=== PATIENT | female | born 1980 | race Caucasian/White ===

== ENCOUNTER 2019-12-13 08:48 | Day surgery (SDC) | payer OTHER ==
[2019-12-11 11:25] LABS: HEMATOCRIT 43.7 % (36.0-47.0); MEAN CORPUSCULAR HEMOGLOBIN 29.6 pg (27.0-33.4); MEAN CORPUSCULAR HGB CONC 34.3 g/dL (32.0-36.0); MEAN CORPUSCULAR VOLUME 86 fl (80-97); PLATELET COUNT 215 10^3/uL (150-450); RED BLOOD COUNT 5.07 10^6/uL (3.72-5.28); RED CELL DISTRIBUTION WIDTH 12.6 % (11.5-14.0); WHITE BLOOD COUNT 7.7 10^3/uL (4.0-10.5)
[2019-12-11 11:40] LABS: APPEARANCE,URINE CLEAR; BILIRUBIN,URINE NEGATIVE (NEGATIVE); COLOR,URINE YELLOW; GLUCOSE, URINE NEGATIVE (NEGATIVE); KETONES,URINE NEGATIVE (NEGATIVE); LEUKOCYTE ESTERASE,URINE NEGATIVE (NEGATIVE); NITRITE,URINE NEGATIVE (NEGATIVE); PROTEIN,URINE NEGATIVE (NEGATIVE); URINE SPECIFIC GRAVITY 1.016; UROBILINOGEN,URINE NEGATIVE mg/dL (<2.0)
[~2019-12-13 08:48] MED LIST: LACTATED RINGERS 1000 ML IV PRN; LIDOCAINE 0.5% INJ-PF (5 MG/ML) 50 ML SDV SUBCUT PRN
[2019-12-13] MEDS ORDERED: SCOPOLAMINE HYDROBROMIDE 1.5 MG PATCH.TD72 ONE (09:57)
[2019-12-13] MEDS ORDERED: ALBUTEROL SULFATE 0.083% NEB 2.5 MG/3 ML AMPUL NEB ONE (10:15)
[2019-12-13] MEDS ORDERED: FENTANYL CITRATE INJ/PF 100 MCG/2 ML AMPUL ONE ×2 (10:38→11:30)
[2019-12-13] MEDS ORDERED: MIDAZOLAM 2 MG/2 ML INJ ONE (10:38)
[2019-12-13] MEDS ORDERED: DEXAMETHASONE SOD PHOSPHATE INJ 4 MG/1 ML VIAL ONE (10:38)
[2019-12-13] MEDS ORDERED: LIDOCAINE 2% INJ-PF (20 MG/ML) 10 ML AMPUL ONE (10:38)
[2019-12-13] MEDS ORDERED: PROPOFOL INJ 200 MG/20 ML VIAL IV ONE (10:39)
[2019-12-13] MEDS ORDERED: ONDANSETRON HCL INJ/PF 4 MG/2 ML SDV ONE (10:39)
[2019-12-13] MEDS ORDERED: KETOROLAC TROMETHAMINE INJ/PF 30 MG/1 ML SDV IV PRN (11:17)
[2019-12-13] MEDS ORDERED: IBUPROFEN 800 MG TABLET PO PRN (11:17)
[2019-12-13] MEDS ORDERED: RINGERS SOLUTION,LACTATED 1,000 ML IV PRN (11:17)
[2019-12-13] MEDS ORDERED: OXYCODONE-ACETAMINOPHEN 5-325 MG TABLET PO PRN ×4 (11:17→11:47)
--- NOTE | 2019-12-13 11:21 | Operative Report ---
Operative Report DATE OF SURGERY: 12/13/19 PREOPERATIVE DIAGNOSIS: Heavy menses POSTOPERATIVE DIAGNOSIS: Same OPERATION: Hysteroscopy D&C NovaSure ablation SURGEON: DENISE BENNETT ANESTHESIA: GA TISSUE REMOVED OR ALTERED: Uterine contents COMPLICATIONS: None ESTIMATED BLOOD LOSS: 20 cc INTRAOPERATIVE FINDINGS: Normal-appearing uterine cavity with a length of 5 cm and a width of 4.3 cm PROCEDURE: Patient was taken the OR and placed in supine position. General anesthesia was induced. She was placed in dorsolithotomy position using Micheal stirrups. Her perineum and vagina were prepared and draped in sterile fashion. She had just voided and did not need catheterization. A weighted speculum was placed in the vagina and the anterior lip cervix was grasped with a tenaculum. Sound was to 8 cm before and after the case. Cervix was dilated endocervical curettings were obtained. Hysteroscopy was performed which showed a empty uterine cavity. Next the D&C was done and into the atrial curettings were sent for pathology. The NovaSure device was placed tested and fired without incident. After the completion of the procedure the NovaSure was removed. Repeat hysteroscopy showed a well ablated uterine cavity. Sound was to 8 cm. All instruments were removed. She is placed back in supine position taken to recovery in stable condition.
--- NOTE | 2019-12-13 11:24 | Discharge Summary ---
Discharge Summary (SDC) - Discharge Final Diagnosis: Heavy menses Date of Surgery: 12/13/19 Discharge Date: 12/13/19 Condition: Good Referrals: JANEEN WHITMAN, [facility]-C [Primary Care Provider] - Discharge Diet: Regular Discharge Activity: Balance Activity w/Rest, Pelvic Rest Report the Following to Your Physician Immediately: Fever over 101 Degrees
[2019-12-13] MEDS ORDERED: KETOROLAC TROMETHAMINE INJ/PF 30 MG/1 ML SDV ONE (11:30)
[2019-12-13] MEDS ORDERED: FENTANYL CITRATE INJ/PF 100 MCG/2 ML AMPUL IV PRN ×3 (11:47)
[2019-12-13] MEDS ORDERED: MORPHINE SULFATE 10 MG/ML INJ IV PRN (11:47)
[2019-12-13] MEDS ORDERED: PROMETHAZINE HCL INJ 25 MG/1 ML VIAL IV PRN ×2 (11:47)
[2019-12-13] MEDS ORDERED: ONDANSETRON HCL INJ/PF 4 MG/2 ML SDV IV PRN (11:47)
[2019-12-13] MEDS ORDERED: MEPERIDINE HCL/PF INJ 25 MG/1 ML DISP.SYRIN IV PRN (11:47)
[2019-12-13] MEDS ORDERED: DIPHENHYDRAMINE HCL 50 MG/ML VIAL IV PRN (11:47)
[2019-12-13] MEDS ORDERED: ACETAMINOPHEN 1,000 MG/100 ML RTUPB IV ONE (12:07)
[2019-12-13] MEDS ORDERED: OXYCODONE-ACETAMINOPHEN 5-325 MG TABLET ONE (12:25)
[2019-12-13 13:56] VITALS: BP 124/86
== END 2019-12-13 13:25 | disposition home or self-care (01) ==
LOC: OROUT 08:48
PROVIDERS: ATTEND Obstetrics & Gynecology
DX: N92.1 Excessive and frequent menstruation with irregular cycle (principal); F17.210 Nicotine dependence, cigarettes, uncomplicated; Z79.899 Other long term (current) drug therapy
CPT/HCPCS: 36415; 85027; 81025; 81001; 88305 ×2; 00952; 58563; J2250; J1100; J3010; J1885; J2405; J2704; J3490; J0131; 952

== ENCOUNTER 2020-10-16 05:33 | Day surgery (SDC) | payer OTHER ==
[2020-10-13 10:41] LABS: HEMATOCRIT 43.6 % (36.0-47.0); MEAN CORPUSCULAR HGB CONC 34.5 g/dL (32.0-36.0); MEAN CORPUSCULAR VOLUME 87 fl (80-97); PLATELET COUNT 227 10^3/uL (150-450); RED CELL DISTRIBUTION WIDTH 13.6 % (11.5-14.0); WHITE BLOOD COUNT 7.6 10^3/uL (4.0-10.5)
[2020-10-13 10:44] LABS: APPEARANCE,URINE CLEAR; BILIRUBIN,URINE NEGATIVE (NEGATIVE); COLOR,URINE YELLOW; GLUCOSE, URINE NEGATIVE (NEGATIVE); KETONES,URINE NEGATIVE (NEGATIVE); LEUKOCYTE ESTERASE,URINE TRACE (NEGATIVE); NITRITE,URINE NEGATIVE (NEGATIVE); PROTEIN,URINE NEGATIVE (NEGATIVE); URINE SPECIFIC GRAVITY 1.016; UROBILINOGEN,URINE NEGATIVE mg/dL (<2.0)
[2020-10-13 11:18] LABS: ALBUMIN 4.4 g/dL (3.5-5.0); ALKALINE PHOSPHATASE 114 U/L (38-126); ANION GAP 6 (5-19); ASPARTATE AMINO TRANSFERASE 44 U/L (14-36); BILIRUBIN,DIRECT 0.1 mg/dL (0.0-0.4); BILIRUBIN,TOTAL 0.4 mg/dL (0.2-1.3); BLOOD UREA NITROGEN 13 mg/dL (7-20); CALCIUM 9.8 mg/dL (8.4-10.2); CARBON DIOXIDE 29 mmol/L (22-30); CHLORIDE 100 mmol/L (98-107); GLUCOSE 105 mg/dL (75-110); POTASSIUM 4.7 mmol/L (3.6-5.0); TOTAL PROTEIN 7.3 g/dL (6.3-8.2)
[~2020-10-16 05:33] MED LIST changes: +CEFAZOLIN 1 GM/D5W RTU 1 GM/50 ML RTUPB IV ONE; +CEFAZOLIN 1 GM/D5W RTU 1 GM/50 ML RTUPB IV PRN; -LIDOCAINE 0.5% INJ-PF (5 MG/ML) 50 ML SDV SUBCUT PRN
[2020-10-16] MEDS ORDERED: EPHEDRINE SULFATE INJ 50 MG/1 ML AMPULE ONE (06:42)
[2020-10-16] MEDS ORDERED: FENTANYL CITRATE INJ/PF 250 MCG/5 ML AMPULE ONE (06:42)
[2020-10-16] MEDS ORDERED: MIDAZOLAM 2 MG/2 ML INJ ONE (06:42)
[2020-10-16] MEDS ORDERED: SUGAMMADEX SODIUM 200 MG/2 ML SDV IV ONE (06:43)
[2020-10-16] MEDS ORDERED: PROPOFOL INJ 200 MG/20 ML VIAL IV ONE (06:43)
[2020-10-16] MEDS ORDERED: HYDROMORPHONE HCL INJ/PF 2 MG/ML AMPULE ONE (06:43)
[2020-10-16] MEDS ORDERED: LIDOCAINE 2% INJ (20 MG/ML) 20 ML MDV ONE (06:45)
[2020-10-16] MEDS ORDERED: OXYCODONE-ACETAMINOPHEN 5-325 MG TABLET PO PRN ×4 (08:24→09:51)
[2020-10-16] MEDS ORDERED: MEPERIDINE HCL/PF INJ 25 MG/1 ML DISP.SYRIN IV PRN (08:24)
[2020-10-16] MEDS ORDERED: DIPHENHYDRAMINE HCL 50 MG/ML VIAL IV PRN (08:24)
[2020-10-16] MEDS ORDERED: PROMETHAZINE HCL INJ 25 MG/1 ML VIAL IV PRN ×3 (08:24→09:51)
[2020-10-16] MEDS ORDERED: MORPHINE SULFATE 10 MG/ML INJ IV PRN (08:24)
[2020-10-16] MEDS ORDERED: FENTANYL CITRATE INJ/PF 100 MCG/2 ML AMPUL IV PRN ×3 (08:24)
[2020-10-16] MEDS ORDERED: ACETAMINOPHEN 1,000 MG/100 ML RTUPB IV PRN (09:51)
[2020-10-16] MEDS ORDERED: ACETAMINOPHEN 325 MG TABLET PO PRN (09:51)
[2020-10-16] MEDS ORDERED: HYDROMORPHONE HCL INJ/PF 2 MG/ML AMPULE IV PRN (09:51)
[2020-10-16] MEDS ORDERED: RINGERS SOLUTION,LACTATED 1,000 ML IV PRN (09:51)
[2020-10-16] MEDS ORDERED: DOCUSATE SODIUM 100 MG CAPSULE PO SCH (10:00)
--- NOTE | 2020-10-16 10:06 | Operative Report ---
Operative Report DATE OF SURGERY: 10/16/20 PREOPERATIVE DIAGNOSIS: Patient desires hysterectomy for dysmenorrhea bleed hea vy bleeding and pelvic pain POSTOPERATIVE DIAGNOSIS: Same OPERATION: Da Katya hysterectomy with bilateral salpingectomy, ovaries were normal and left in place SURGEON: DENISE BENNETT ANESTHESIA: GA TISSUE REMOVED OR ALTERED: Uterus cervix and fallopian tubes COMPLICATIONS: None ESTIMATED BLOOD LOSS: 50 cc INTRAOPERATIVE FINDINGS: Boggy appearing uterus, normal ovaries PROCEDURE: Patient was taken to the OR and placed in supine position. General anesthesia was induced. She is placed in a dorsolithotomy position using Micheal stirrups her abdomen perineum vagina were prepared and draped in sterile fashion. A Balderas catheter was placed. A Luxim uterine manipulator was also placed after gently dilating the cervix. An incision was made above the umbilicus. The fascia was grasped with Belem clamps and elevated. The fascia was incised. A blunt port was then placed into the abdomen. Laparoscopy confirmed appropriate placement. There was a omental adhesion at a previous umbilical incision which did not interfere with surgery as we could go around the omental adhesion with the scope. Lateral ports were placed under laparoscopic visualization and a right lower quadrant port was placed for insufflation. She was placed in steep Trendelenburg positioning for the robot. The robot was brought to the patient and docked. We had a bipolar cautery at the left hand and a monopolar matias at the right hand. Uterus was elevated about the pelvis. Each fallopian tube was then removed by cauterizing the mesosalpinx with bipolar and cutting with monopolar matias. Each tube was passed off the field. The ovaries appeared normal and were left in place. The round ligaments bilaterally were cauterized with bipolar and cut with monopolar matias. Anterior leaf of the broad ligament was incised creating a bladder flap posterior leaf of broad ligament was incised exposing the utero-ovarian pedicles. Bilaterally the utero-ovarian pedicles were cauterized with bipolar cautery and cut with monopolar matias. The broad ligament was then cauterized with bipolar cautery and cut with monopolar matias bilaterally directly next to the uterus. This was continued down the side of the uterus. This was completed bilaterally to the level of the uterine arteries. With the uterus elevated up in the pelvis the uterine arteries were cauterized with bipolar cautery and cut with monopolar matias directly next to the uterus. This was completed bilaterally as well. Likewise the cardinal ligaments were cauterized with bipolar cautery and cut with monopolar matias bilaterally. Upon reaching the vaginal cuff as identified with the V care uterine manipulator cup, a circumferential incision was made around the V care cup. The uterus was removed through the vaginal incision. Next the right-handed matias were exchanged for a needle powder truck driver. A V lock suture was placed into the abdomen through the accessory port. The vaginal cuff was then closed starting at the right side of the vaginal cuff. Anterior vaginal mucosa was grasped lateral vaginal sidewall and posterior vaginal mucosa then grasped with the first stitch. This was looped and pulled tight. Next the cuff was "closed from right to left incorporating anterior vaginal mucosa to posterior vaginal mucosa. Upon reaching the left angle anterior vaginal Koza lateral vaginal sidewall and posterior vaginal mucosa was included in the stitch and this was pulled tight. Several sutures were then taken medially and the stitch was cut and needle passed off the field. Next the pelvis was irrigated with saline and suctioned free of fluid hemostasis was inspected at the angles, uterine artery pedicles and utero-ovarian pedicles. There was good hemostasis. The robot was then undocked from the patient. Next with the patient out of steep Trendelenburg the pelvis was inspected and there was no evidence of bleeding. The ports were removed under laparoscopic visualization and the gas was allowed to escape from the abdomen. The supraumbilical port was removed under laparoscopic visualization as well. The fascia at the supraumbilical port was closed with a 2-0 Vicryl stitch. The skin at all 4 sites was closed with a 4-0 undyed Vicryl suture. The patient was placed back in supine position and extubated in the OR and taken to recovery room in stable condition.
[2020-10-16] MEDS: MEPERIDINE HCL/PF INJ 25 MG/1 ML DISP.SYRIN ONE ×2 (10:08→10:25)
[2020-10-16] MEDS ORDERED: OXYCODONE-ACETAMINOPHEN 5-325 MG TABLET ONE (10:37)
[2020-10-16] MEDS ORDERED: KETOROLAC TROMETHAMINE INJ/PF 30 MG/1 ML SDV IV SCH (14:00)
--- NOTE | 2020-10-16 14:31 | PDOC DISCHARGE SUMMARY ---
Impression - Admit/DC Date/PCP Admission Date/Primary Care Provider: PABLO FREGOSO Discharge Date: 10/16/20 - Discharge Diagnosis (1) Heavy menses Is this a current diagnosis for this admission?: Yes - Assessment Summary: The patient is status post an ablation but continues to have heavy bleeding and pain. She requests a hysterectomy. She had a robotic hysterectomy earlier today and now wishes to go home. She is doing well in her room and her catheter has been removed. She will be sent home today. No driving and pelvic rest. Followup in the office next week. - Additional Information Resuscitation Status: Full Code Discharge Diet: As Tolerated Discharge Activity: Balance Activity w/Rest, Pelvic Rest Referrals: JANEEN WHITMAN NP-C [Primary Care Provider] - DENISE BENNETT MD [ACTIVE STAFF] - 10/21/20 2:30 pm (CALL THE OFFICE FOR QUESTIONS AND CONCERNS.) Prescriptions: Oxycodone HCl/Acetaminophen [Percocet 5-325 mg Tablet] 1 tab PO Q4HP PRN 7 Days #28 tablet PRN Reason: Ibuprofen [Motrin 800 mg Tablet] 800 mg PO Q6 #30 tablet Home Medications: Biotin 1 cap PO DAILY 12/11/19 Escitalopram Oxalate [Lexapro] 20 mg PO QHS 12/11/19 Ibuprofen [Motrin 800 mg Tablet] 800 mg PO Q6 #30 tablet 10/16/20 Oxycodone HCl/Acetaminophen [Percocet 5-325 mg Tablet] 1 tab PO Q4HP PRN 7 Days #28 tablet 10/16/20 Additional Information: Followup next week History of Present Illiness History of Present Illness: NICOLASA PETIT is a 40 year old female Physical Exam - Physical Exam Vital Signs: Temp Pulse Resp BP Pulse Ox 98.2 F 101 H 15 106/62 93 10/16/20 13:31 10/16/20 13:31 10/16/20 13:31 10/16/20 13:31 10/16/20 13:31 Intake & Output 10/15/20 10/16/20 10/17/20 06:59 06:59 06:59 Intake Total 0 1725 Output Total 600 Balance 0 1125 Weight 81.65 kg Results Laboratory Results: WBC 7.6 10^3/uL (4.0-10.5) 10/13/20 10:02 RBC 5.00 10^6/uL (3.72-5.28) 10/13/20 10:02 Hgb 15.0 g/dL (12.0-15.5) 10/13/20 10:02 Hct 43.6 % (36.0-47.0) 10/13/20 10:02 MCV 87 fl (80-97) 10/13/20 10:02 MCH 30.0 pg (27.0-33.4) 10/13/20 10:02 MCHC 34.5 g/dL (32.0-36.0) 10/13/20 10:02 RDW 13.6 % (11.5-14.0) 10/13/20 10:02 Plt Count 227 10^3/uL (150-450) 10/13/20 10:02 Sodium 135.1 mmol/L (137-145) L 10/13/20 10:02 Potassium 4.7 mmol/L (3.6-5.0) 10/13/20 10:02 Chloride 100 mmol/L (98-107) 10/13/20 10:02 Carbon Dioxide 29 mmol/L (22-30) 10/13/20 10:02 Anion Gap 6 (5-19) 10/13/20 10:02 BUN 13 mg/dL (7-20) 10/13/20 10:02 Creatinine 0.75 mg/dL (0.52-1.25) 10/13/20 10:02 Est GFR ( Amer) > 60 (>60) 10/13/20 10:02 Est GFR (MDRD) Non-Af > 60 (>60) 10/13/20 10:02 Glucose 105 mg/dL (75-110) 10/13/20 10:02 Calcium 9.8 mg/dL (8.4-10.2) 10/13/20 10:02 Total Bilirubin 0.4 mg/dL (0.2-1.3) 10/13/20 10:02 Direct Bilirubin 0.1 mg/dL (0.0-0.4) 10/13/20 10:02 Neonat Total Bilirubin Not Reportable 10/13/20 10:02 Neonat Direct Bilirubin Not Reportable 10/13/20 10:02 Neonat Indirect Bili Not Reportable 10/13/20 10:02 AST 44 U/L (14-36) H 10/13/20 10:02 ALT 57 U/L (<35) H 10/13/20 10:02 Alkaline Phosphatase 114 U/L (38-126) 10/13/20 10:02 Total Protein 7.3 g/dL (6.3-8.2) 10/13/20 10:02 Albumin 4.4 g/dL (3.5-5.0) 10/13/20 10:02 Urine Color YELLOW 10/13/20 10:03 Urine Appearance CLEAR 10/13/20 10:03 Urine pH 5.0 (5.0-9.0) 10/13/20 10:03 Ur Specific [place] 1.016 10/13/20 10:03 Urine Protein NEGATIVE mg/dL (NEGATIVE) 10/13/20 10:03 Urine Glucose (UA) NEGATIVE mg/dL (NEGATIVE) 10/13/20 10:03 Urine Ketones NEGATIVE mg/dL (NEGATIVE) 10/13/20 10:03 Urine Blood NEGATIVE (NEGATIVE) 10/13/20 10:03 Urine Nitrite NEGATIVE (NEGATIVE) 10/13/20 10:03 Urine Bilirubin NEGATIVE (NEGATIVE) 10/13/20 10:03 Urine Urobilinogen NEGATIVE mg/dL (<2.0) 10/13/20 10:03 Ur Leukocyte Esterase TRACE (NEGATIVE) H 10/13/20 10:03 Urine WBC (Auto) 2 /HPF 10/13/20 10:03 Urine RBC (Auto) 2 /HPF 10/13/20 10:03 Squamous Epi Cells Auto 3 /HPF 10/13/20 10:03 Urine Mucus (Auto) RARE /LPF 10/13/20 10:03 Urine Ascorbic Acid NEGATIVE (NEGATIVE) 10/13/20 10:03 Urine HCG, Qual NEGATIVE (NEGATIVE) 10/16/20 05:38 COVID-19 Source See comment 10/13/20 09:55 COVID-19 (DACIA) Not Detected (Not Detect) 10/13/20 09:55 Blood Type B POSITIVE 10/13/20 10:02 Antibody Screen NEGATIVE 10/13/20 10:02 Stroke Is this a Stroke Patient?: No Acute Heart Failure Is this a Heart Failure Patient?: No
[2020-10-16] MEDS ORDERED: METOCLOPRAMIDE HCL INJ/PF 10 MG/2 ML SDV ONE (14:43)
[2020-10-16] MEDS ORDERED: ALBUTEROL SULFATE HFA (90 MCG/PUFF) 8 GM MDI IH ONE (14:43)
[2020-10-16] MEDS ORDERED: ROCURONIUM BROMIDE INJ 50 MG/5 ML VIAL IV ONE (14:43)
[2020-10-16] MEDS ORDERED: KETOROLAC TROMETHAMINE 60 MG/2 ML SDV ONE (14:43)
[2020-10-16] MEDS ORDERED: SUCCINYLCHOLINE CHLORIDE INJ 200 MG/10 ML VIAL ONE (14:43)
[2020-10-16] MEDS ORDERED: ONDANSETRON HCL INJ/PF 4 MG/2 ML SDV ONE (14:43)
[2020-10-16] MEDS ORDERED: DIPHENHYDRAMINE HCL 50 MG/ML VIAL ONE (14:43)
[2020-10-16] MEDS ORDERED: DEXAMETHASONE SOD PHOSPHATE INJ 4 MG/1 ML VIAL ONE (14:43)
[2020-10-16 15:05] LABS: HEMATOCRIT 41.9 % (36.0-47.0); MEAN CORPUSCULAR HEMOGLOBIN 29.5 pg (27.0-33.4); MEAN CORPUSCULAR HGB CONC 33.4 g/dL (32.0-36.0); MEAN CORPUSCULAR VOLUME 88 fl (80-97); PLATELET COUNT 200 10^3/uL (150-450); RED BLOOD COUNT 4.75 10^6/uL (3.72-5.28); RED CELL DISTRIBUTION WIDTH 13.3 % (11.5-14.0); WHITE BLOOD COUNT 12.9 10^3/uL (4.0-10.5)
[2020-10-16 15:24] LABS: ABSOLUTE LYMPHOCYTES# (MANUAL) 0.3 10^3/uL (0.5-4.7); ABSOLUTE MONOCYTES # (MANUAL) 0.5 10^3/uL (0.1-1.4); BASOPHILS % (MANUAL) 0 % (0-2); EOSINOPHILS % (MANUAL) 0 % (0-6); LYMPHOCYTES % (MANUAL) 1 % (13-45); MONOCYTES % (MANUAL) 4 % (3-13); PLATELET COMMENT ADEQUATE; RBC MORPHOLOGY COMMENT NORMO-CYTIC/CHROMIC; SEGMENTED NEUTROPHILS % (MAN) 94 % (42-78); TOTAL CELLS COUNTED 100
[2020-10-16 15:25] LABS: ANION GAP 10 (5-19); BLOOD UREA NITROGEN 10 mg/dL (7-20); CALCIUM 9.4 mg/dL (8.4-10.2); CARBON DIOXIDE 23 mmol/L (22-30); CHLORIDE 100 mmol/L (98-107); GLUCOSE 186 mg/dL (75-110); POTASSIUM 4.8 mmol/L (3.6-5.0)
[2020-10-16 16:23] VITALS: BP 113/59
[2020-10-17] MEDS ORDERED: IBUPROFEN 800 MG TABLET PO SCH (12:00)
== END 2020-10-16 16:30 | disposition home or self-care (01) ==
LOC: OROUT 05:33 → 2N 10:55 → OROUT 16:30
PROVIDERS: ATTEND Obstetrics & Gynecology
DX: N92.1 Excessive and frequent menstruation with irregular cycle (principal); N72 Inflammatory disease of cervix uteri; N87.9 Dysplasia of cervix uteri, unspecified; N83.8 Other noninflammatory disorders of ovary, fallopian tube and broad ligament; Z98.51 Tubal ligation status; Z20.828 Contact with and (suspected) exposure to other viral communicable diseases; F41.9 Anxiety disorder, unspecified; F32.9 Major depressive disorder, single episode, unspecified; F17.210 Nicotine dependence, cigarettes, uncomplicated; Z90.49 Acquired absence of other specified parts of digestive tract; Z98.890 Other specified postprocedural states; Z79.899 Other long term (current) drug therapy
CPT/HCPCS: 58571; S2900; 36415; 80048; 80053; 81001; 81025; 840; 85025; 85027; 86850; 86900; 86901; 87635; 88307; 94799; C1758; C9803; J0330; J0690; J1100; J1170; J1200; J1885; J2175; J2250; J2405; J2704; J2765; J3010; J3490